=== PATIENT | female | born 1975 | race Caucasian/White ===

== ENCOUNTER → 2020-07-29 | Day surgery (SDC) | payer BC, OTHER ==
[2020-07-25 16:26] LABS: BASOPHILS % 0.5 % (0.0-1.0); EOSINOPHILS # (AUTO) 0.1 (0.0-0.4); EOSINOPHILS % 0.9 % (0.0-6.0); HEMATOCRIT 36.3 % (34.2-44.1); HEMOGLOBIN 12.2 g/dL (12.0-16.0); LYMPHOCYTES # (AUTO) 2.4 (1.0-3.2); LYMPHOCYTES % 30.3 % (18.0-39.1); MEAN CORPUSCULAR HEMOGLOBIN 33.2 pg (28-32); MEAN CORPUSCULAR HGB CONC 33.6 g/dL (31-35); MEAN CORPUSCULAR VOLUME 98.6 fL (81-99); MONOCYTES # (AUTO) 0.4 (0.2-0.8); MONOCYTES % 5.2 % (4.4-11.3); NEUTROPHILS # (AUTO) 4.9 (2.1-6.9); NEUTROPHILS % 62.8 % (38.7-80.0); PLATELET COUNT 347 x10e3/uL (140-360); RED BLOOD COUNT 3.68 x10e6/uL (3.6-5.1)
[~2020-07-29] MED LIST: BENADRYL PO; FAMOTIDINE20 MG PO; FENTANYL CITRATE/PF 100MCG/2 ML INJ ONE; FIORINAL 50-321 EACH PO; LIDOCAINE HCL 2% LOCAL INJ 5 ML SDV VIAL INJ ONE; METOCLOPRAMIDE10 MG PO; MIDAZOLAM HCL 2 MG/2 ML VIAL ONE; NORCO 5-325 TA1 EACH PO; PANTOPRAZOLE 40 MG 10ML VIAL ONE; PROPOFOL IV EMULSION 10 MG/ML 20 ML VIAL ONE; PROPRANOLOL HCL40 MG PO; ST. JOHN'S WORT PO; SUCRALFATE1 GM PO; VYVANSE60 MG PO; XANAX PO; XANAX0.5 MG PO
[2020-07-29 15:35] VITALS: BP 122/94
== END | disposition home or self-care (01) ==
LOC: OR 11:00
PROVIDERS: ATTEND Internal Medicine Gastroenterology
DX: K20.90 Esophagitis, unspecified without bleeding (principal); K29.70 Gastritis, unspecified, without bleeding; K25.9 Gastric ulcer, unspecified as acute or chronic, without hemorrhage or perforation; K26.9 Duodenal ulcer, unspecified as acute or chronic, without hemorrhage or perforation; I10 Essential (primary) hypertension; K59.09 Other constipation; Z01.810 Encounter for preprocedural cardiovascular examination; Z01.812 Encounter for preprocedural laboratory examination; Z11.59 Encounter for screening for other viral diseases; E03.9 Hypothyroidism, unspecified; D68.51 Activated protein C resistance; Z72.0 Tobacco use; F41.9 Anxiety disorder, unspecified
CPT/HCPCS: 36415; 43239; 85025; 93005; C9113; J2001; J2250; J2704; J3010; U0002

== ENCOUNTER 2020-08-02 10:24 | Emergency (ER) | payer BC ==
[~2020-08-02] VITALS: Ht 167.6 cm; Wt 58.1 kg
[~2020-08-02 10:24] MED LIST changes: -FENTANYL CITRATE/PF 100MCG/2 ML INJ ONE; -LIDOCAINE HCL 2% LOCAL INJ 5 ML SDV VIAL INJ ONE; -MIDAZOLAM HCL 2 MG/2 ML VIAL ONE; -PANTOPRAZOLE 40 MG 10ML VIAL ONE; -PROPOFOL IV EMULSION 10 MG/ML 20 ML VIAL ONE
[2020-08-02] MEDS ORDERED: PANTOPRAZOLE 40 MG 10ML VIAL IV STA (10:44)
[2020-08-02] MEDS ORDERED: MORPHINE SULFATE 2 MG/ML SYR 1ML IV STA (10:44)
[2020-08-02] MEDS ORDERED: ONDANSETRON HCL INJ 2MG/ML 2ML 2 MG/ML VIAL IV STA (10:44)
[2020-08-02] MEDS ORDERED: MORPHINE SULFATE INJ 4 MG/ML INJ 1ML ONE (10:53)
[2020-08-02] MEDS ORDERED: FAMOTIDINE 20 MG/2 ML VIAL IV ONE (10:53)
[2020-08-02] MEDS ORDERED: SODIUM CHLORIDE 0.9% 1000ML 1,000 ML ONE (10:54)
[2020-08-02] MEDS ORDERED: FAMOTIDINE 20 MG/2 ML VIAL IV STA (11:03)
[2020-08-02] MEDS ORDERED: SODIUM CHLORIDE 0.9% 1000ML 1,000 ML IV SCH (11:15)
== END 2020-08-02 13:32 | disposition home or self-care (01) ==
LOC: FSED 10:38
DX: K62.5 Hemorrhage of anus and rectum (principal); F41.9 Anxiety disorder, unspecified; R11.0 Nausea; R14.0 Abdominal distension (gaseous)
CPT/HCPCS: 74176; 80048; 80076; 81003; 81025; 85025; 99284; C9113; J2270 ×2; J2405; J7030